=== PATIENT | male | born 1950 | race African-American/Black ===

== ENCOUNTER 2017-07-21 22:10 | Inpatient (IN) | payer MEDICARE ==
[2017-07-22 00:05] LABS: #Basophils 0.1 thou/uL (0.0-0.2); #Lymphocytes 1.6 thou/uL (1.20-3.40); #Monocytes 1.4 thou/uL (0.11-0.59); #Neutrophils 9.8 thou/uL (1.40-6.50); %Basophils 0.4 % (0.0-1.0); %Eosinophils 0.4 % (0.0-10.0); %Lymphocytes 12.3 % (21.0-51.0); %Monocytes 11.1 % (0.0-10.0); Hematocrit 41.9 % (42.0-52.0); Mean Platelet Volume 8.6 fL (7.4-10.4); Red Blood Cell (RBC) Count 4.38 mill/uL (4.70-6.10); White Blood Cell (WBC) Count 12.9 thou/uL (4.8-10.8)
[2017-07-22 00:22] LABS: ALT (SGPT) 15 U/L (8-55); AST (SGOT) 15 U/L (5-34); Alkaline Phosphatase 106 U/L (40-150); Anion Gap 14 mmol/L (10-20); BUN (Urea Nitrogen) 17 mg/dL (8.4-25.7); Bilirubin, Total 0.3 mg/dL (0.2-1.2); Calc. Creatinine Clearance 0 mL/min (70-130); Calcium 10.4 mg/dL (7.8-10.44); Carbon Dioxide 28 mmol/L (23-31); Chloride 99 mmol/L (98-107); Estimated GFR-MDRD 82; Globulin 4.8 g/dL (2.4-3.5); Protein, Total 8.6 g/dL (5.8-8.1)
[2017-07-22 00:26] LABS: Troponin I Less than 0.010 ng/mL (< 0.028)
[2017-07-22] MEDS ORDERED: Enoxaparin Sodium 80 MG/0.8 ML SYRINGE ONE (01:47)
[2017-07-22 01:56] LABS: Lactic Acid - Sepsis 0.9 mmol/L (0.5-2.2)
[2017-07-22 02:01] LABS: PTT 30.7 SEC (22.9-36.1); Prothrombin Time 12.9 SEC (12.0-14.7)
[2017-07-22] MEDS ORDERED: Ondansetron ODT 4 MG TAB SL PRN (03:05)
[2017-07-22] MEDS ORDERED: Sodium Chloride 0.9% 1,000 ML IV SCH (03:05)
[2017-07-22] MEDS ORDERED: Ondansetron HCl/PF 4 MG/2 ML Vial IVP PRN ×2 (03:05→07:19)
[2017-07-22 03:39] VITALS: BMI 28.3
[2017-07-22] MEDS ORDERED: Eucerin (Mineral Oil/Petrolatum,White) 30 gm Jar TOP PRN (07:19)
[2017-07-22] MEDS ORDERED: Sodium Chloride 0.65% Nasal 44 ML BOT EA NARE PRN (07:19)
[2017-07-22] MEDS ORDERED: Milk Of Magnesia 30 ML UDCUP PO PRN (07:19)
[2017-07-22] MEDS ORDERED: Acetaminophen 325 MG TAB PO PRN (07:19)
[2017-07-22] MEDS ORDERED: Artificial Tear Sol 15 ML BOT EA EYE PRN (07:19)
[2017-07-22] MEDS ORDERED: Loratadine 10 MG TAB PO PRN (07:19)
[2017-07-22] MEDS ORDERED: Chloraseptic Spray 180 ml Bottle PO PRN (07:19)
[2017-07-22] MEDS ORDERED: Zolpidem Tartrate 5 MG TAB PO PRN (07:19)
[2017-07-22] MEDS ORDERED: HYDROcodone/Acetaminophen 5/325 mg Tablet PO PRN (07:19)
[2017-07-22] MEDS ORDERED: Mag-Al 1200 mg/1200 mg/30 ML UDCUP PO PRN (07:19)
[2017-07-22] MEDS ORDERED: Loperamide HCl 2 MG CAP PO PRN (07:19)
[2017-07-22] MEDS ORDERED: Ondansetron ODT 4 MG TAB PO PRN (07:19)
[2017-07-22] MEDS ORDERED: hydrALAZINE 20 MG/ML VIAL SLOW IVP PRN (07:19)
[2017-07-22] MEDS ORDERED: Senokot 8.6 MG TAB PO PRN (07:19)
[2017-07-22] MEDS ORDERED: Sodium Chloride 0.9% 10 ML ONE (08:26)
--- NOTE | 2017-07-22 08:59 | RAD ---
PA AND LATERAL CHEST: Date: 07/22/17 HISTORY: Cough and right-sided chest pain. COMPARISON: 07/10/17. FINDINGS: Cardiac silhouette and pulmonary vasculature are within normal limits. Increased linear opacities are seen at each lung base, probably related to atelectasis. However, developing infiltrate at the right lung base cannot be entirely excluded. Lungs are otherwise clear. There has been no other interval c hange from prior exam. IMPRESSION: Increased linear densities at each lung base, greater on the right, which may be related to atelectas is, but developing infiltrate right lung base cannot be entirely excluded. Follow-up evaluation is hagen ggested. POS: BA
[2017-07-22] MEDS: Enoxaparin Sodium 80 MG/0.8 ML SYRINGE SC SCH ×2 (10:35→20:18)
[2017-07-22] MEDS: Diabetic Tussin 200 MG/10 ML UDCUP PO PRN ×2 (10:35→20:18)
--- NOTE | 2017-07-22 11:31 | ULT ---
BILATERAL LOWER EXTREMITY VENOUS DOPPLER ULTRASOUND: Date: 07/22/17 COMPARISON: None. HISTORY: Pulmonary embolism, assess for deep venous thrombosis. TECHNIQUE: Multiplanar Lindsay scale sonographic imaging of the venous structures of bilateral lower extremities ob tained with color flow and spectral analysis. FINDINGS: Bilateral common femoral veins, greater saphenous veins, profunda femoral veins, femoral veins, popli teal veins, and posterior tibial veins are patent with no evidence for deep venous thrombosis on eith er side. Posterior tibial veins are patent as well. There is normal blood flow, augmentation, and com pression within the deep venous system bilaterally. IMPRESSION: No evidence for deep venous thrombosis of either lower extremity. POS: ANDREW
--- NOTE | 2017-07-22 13:30 | CT ---
PRELIMINARY REPORT/[facility]/EMERGENCY AFTER HOURS PROCEDURE: Addendum created by Manoj Farley MD on 07/22/2017 1:36 AM Central Time ([place] & [place]) THIS REPORT CONT AINS FINDINGS THAT MAY BE CRITICAL TO PATIENT CARE. The findings were verbally communicated via telep arcadio conference with Raya Kirkpatrick at 1:36 AM [employer] on 07/22/2017. The findings were acknowledged and unders tood. Initial Report created on 07/22/2017 1:28 AM Central Time ([place] & [place]) EXAM: CT Angiography Chest With Intravenous Contrast EXAM DATE/TIME: Exam ordered 07/22/2017 12:59 AM CLINICAL HISTORY: 66 years old, male; Pain and signs and symptoms; Cough; Symptoms not specified; Chest pain; Patient H X: Er1. Pt C/O 1 week history of cough productive of yellow sputum. Patient denies copd or asthma his tory. Denies fever/chills, weight loss, n/v/d. Endorses right sided chest pain in midaxillary line li cachorro 2/2 to excessive coughing. Denies hemoptysis and sick contacts TECHNIQUE: Axial computed tomographic angiography images of the chest with intravenous contrast using pulmonary embolism protocol. CONTRAST: 95 mL of ISO 370 administered intravenously. COMPARISON: No relevant prior studies available. FINDINGS: Pulmonary arteries: There are filling defects within the RIGHT lower lobe segmental branches consiste nt with acute pulmonary emboli. Aorta: No acute findings. No thoracic aortic aneurysm. Lungs: There is atelectasis and consolidation within the RIGHT lower lobe for which superimposed pneu monia is possible. Pleural space: Normal. No significant effusion. No pneumothorax. Heart: Normal. No cardiomegaly. No significant pericardial effusion. No evidence of RV dysfunction. Mediastinum: A moderate hiatal hernia is present. Bones/joints: No acute fracture. No dislocation. Soft tissues: Normal. Lymph nodes: Normal. No enlarged lymph nodes. IMPRESSION: 1. There are filling defects within the RIGHT lower lobe segmental branches consistent with acute pul monary emboli. 2. There is atelectasis and consolidation within the RIGHT lower lobe for which superimposed pneumoni a is possible. 3. A moderate hiatal hernia is present. Thank you for allowing us to participate in the care of your patient. Dictated and Authenticated by: Manoj Farley MD 07/22/2017 1:28 AM Central Time ([place] & [place]) FINAL REPORT EMERGENCY AFTER HOURS CT ANGIOGRAM THORAX WITH IV CONTRAST AND 3D RECONSTRUCTIONS: Date: 07/22/17 HISTORY: Productive cough of yellow sputum. Right-sided chest pain. Excessive coughing. COMPARISON: None available. IMPRESSION: 1. Pulmonary emboli in distal segmental and subsegmental right lower lobe pulmonary arteries, as wel l as right upper lobe subsegmental pulmonary arteries. 2. Low density area seen within the right lung base with associated interstitial densities present. While given the presence of right lower lobe pulmonary emboli, a pulmonary infarction could not be en tirely excluded, but findings are probably related to atelectasis and/or infiltrate. Continued follow -up is recommended as pulmonary infarction again cannot be entirely excluded. 3. Atelectasis versus pneumonitis in the lingula. 4. Thoracic aorta is normal in caliber without evidence of an aortic dissection. Vascular calcificat ions are seen in the coronary arteries and the thoracic aorta. 5. Hiatal hernia. 6. Subcentimeter, too small to characterize, hypodense lesions in the right hepatic lobe. Findings are in agreement with the preliminary report by Zay. POS: BA
--- NOTE | 2017-07-22 14:17 | HP ---
PRIMARY CARE PHYSICIAN: [facility] call admission. REASON FOR ADMISSION: Pneumonia and pulmonary embolism. HISTORY OF PRESENT ILLNESS: A 66-year-old male who came to the emergency room for 1 -week history of increasing amount of cough and productive yellowish sputum with subjective fever. H e denies any hemoptysis. He denies any dizziness, palpitations, but he was feeling pleuritic chest p ain on the right side. He was also having increasing shortness of breath for the last couple of days . The patient denies any immobilization. The patient denies any recent travel. He denies any sick exposure. He denies any recent flu-like illness or upper respiratory symptoms. He denies any orthop diego, PND, or leg swelling. He denies any calf tenderness. This patient's condition was gradually getting worse and that is why he decided to go to emergency ro om for evaluation. Last night in the emergency room, patient had CT angio, which showed pulmonary em bolism on the right side. Patient was also suspected for pneumonia. In the emergency room, patient was given Lovenox 1 mg per kg, Levaquin 750 mg, IV fluid, and subseque ntly he was admitted to telemetry floor. ALLERGIES: PENICILLIN. CURRENT HOME MEDICATIONS: At this point, the patient does not know the name of medication and uncert ain whether he is taking any medication at home. The patient is a poor historian and he is not able to provide that detail about medication. REVIEW OF SYSTEMS: Please see my HPI or pertinent positives and negatives. All other review of syst ems reviewed and negative except as mentioned in the HPI: Constitutional: Weight loss or gain, ability to conduct usual activities. Skin: Rash, itching. Eyes: Double vision, pain. ENT/Mouth: Nose bleeding, neck stiffness, pain, tenderness. Cardiovascular: Palpitations, dyspnea on exertion, orthopnea. Respiratory: Shortness of breath, wheezing, cough, hemoptysis, fever or night sweats. Gastrointestinal: Poor appetite, abdominal pain, heartburn, nausea, vomiting, constipation, or diarr hea. Genitourinary: Urgency, frequency, dysuria, nocturia. Musculoskeletal: Pain, swelling. Neurologic/Psychiatric: Anxiety, depression. Allergy/Immunologic: Skin rash, bleeding tendency. PAST MEDICAL HISTORY: History of seizure disorder, acid reflux, hypertension, dyslipidemia, asthma. PAST SURGICAL HISTORY: Reviewed and negative, though patient is not able to provide that detailed hi story about his surgical history, so unable to verify. PAST PSYCHIATRIC HISTORY: Unable to verify, but patient denies any previous psychiatric history. SOCIAL HISTORY: Patient lives at home. No history of tobacco, alcohol, or illicit drug abuse. FAMILY HISTORY: No strong family history of premature coronary artery disease, stroke, or cancer. EMERGENCY ROOM COURSE: Patient is given Lovenox 1 mg per kg and Levaquin 750 mg, IV fluid 2 liter. PHYSICAL EXAMINATION: VITAL SIGNS: On arrival blood pressure 146/92, pulse 116, respiratory rate 20, temperature 98.9, sat uration 93%, weight 82.5 kilograms. GENERAL: Patient is currently alert, awake, no obvious acute distress. HEAD: Normocephalic, atraumatic. EYES: Pupils round, reactive to light. Extraocular muscle intact. ENT: Oropharynx within normal limits. Moist mucous membranes. No oral lesions. No pharyngeal eryt myriam, no exudate. NECK: Supple. No JVD, no thyromegaly, no carotid bruits. LUNGS: Air entry reduced bilaterally, a few right-sided rales noted, a few expiratory wheezing heard . CARDIAC: S1, S2 regular, tachycardia, no murmur, no gallop, no rub. ABDOMEN: Soft, bowel sounds present, nontender, nondistended. No organomegaly, no mass, no suprapub ic tenderness. BACK: Unremarkable, no CVA tenderness. EXTREMITIES: Upper extremity, passive movement of all joints are normal. Lower extremity, no edema. Good peripheral pulsation. No calf tenderness. SKIN: No skin rash. HEMATOLOGICAL: No lymphadenopathy. PSYCHIATRIC: Normal affect. NEUROLOGIC: Nonfocal examination. The patient moves all 4 limbs. SIGNIFICANT LABORATORY DATA: EKG based on my review, sinus tachycardia, nonspecific ST-T changes, LV H. CT angio based on biopsy report right-sided pulmonary embolism and right-sided infiltration. Roxann st x-ray based on my review showing increased density at each lung base more on the right side, devel oping infiltrate in right lung base. CBC: WBC 12.9, hemoglobin 13.6, MCV 95.6, platelet 200. INR 1 .0. BMP: Sodium 137, potassium 4.1, chloride 99, carbon dioxide 28, BUN 17, creatinine 1.09, anion gap 14, lactic acid 0.9, glucose 117, calcium 10.4. LFT: AST 15, ALT 15, alkaline phosphatase 106, albumin 3.8, CK 137, CK-MB 1.2, troponin I less than 0.010. ASSESSMENT AND PLAN: 1. Acute right-sided pulmonary embolism, etiology uncertain. We did ultrasound of the lower extremi ty that is negative for any deep venous thrombosis. We will check stool for guaiac x3 to rule out an y occult bleeding and meanwhile, we will treat with Lovenox 1 mg/kg subcutaneous twice daily along wi th warfarin 5 mg p.o. daily. The patient education about warfarin, Eliquis, Xarelto and risk and regi efit of each medication discussed with the patient and the patient opted on warfarin therapy. We steven l monitor H&H, creatinine, platelets every other day. When INR is therapeutic, at that time we will change to warfarin therapy. 2. Right lower lobe community-acquired pneumonia. Patient also has respiratory symptoms that is con cerning for pneumonia. Patient will have levofloxacin 500 mg IV daily. We will check influenza scre en A and B and Streptococcal urinary and Legionella urinary antigen test. We will continue with the DuoNeb every 6 hourly and Mucinex 600 mg twice daily. 3. Sinus tachycardia likely related with underlying pneumonia as well as pulmonary embolism. 4. Macrocytic anemia. We will continue with folic acid 1 mg p.o. daily, vitamin B12 of 1000 mcg p.o . daily. 5. Deep venous thrombosis prophylaxis. Patient is already on full dose of Lovenox and warfarin ther apy. 6. Gastrointestinal prophylaxis, Protonix 40 mg p.o. daily. 7. Hypertension. We will consider adding metoprolol 25 mg p.o. twice daily. CODE STATUS: The patient is FULL CODE. Patient does not have any surrogate decision maker. Disposition and plan based on clinical course. We are expecting patient's stay in the hospital more than 2 midnights. Plan of care extensively discussed with the patient in detail.
[2017-07-22 14:55] LABS: LegU Control Bar Appear? YES (CONTROL BAR); LegionellaU Control Bkground? CLEAR/WHITE (CLR/WHITE); Strp pneuU Control Background? CLEAR/WHITE (CLR/WHITE); Strp pneumo Control Bar Appear YES (CONTROL BAR)
[2017-07-22] MEDS ORDERED: ISOVUE-370 76%-LOCM 1 ML ONE (16:43)
[2017-07-22] MEDS: Warfarin Sodium 5 MG TAB PO SCH (17:57)
[2017-07-22] MEDS: Metoprolol Tartrate 25 MG TAB PO SCH (20:18)
[2017-07-23] MEDS ORDERED: Sodium Chloride 0.9% 10 ML ONE (03:06)
[2017-07-23 05:28] LABS: #Lymphocytes 1.8 thou/uL (1.20-3.40); #Monocytes 1.3 thou/uL (0.11-0.59); #Neutrophils 7.6 thou/uL (1.40-6.50); %Eosinophils 0.5 % (0.0-10.0); %Lymphocytes 16.5 % (21.0-51.0); %Monocytes 11.9 % (0.0-10.0); Hematocrit 37.6 % (42.0-52.0); Mean Platelet Volume 9.1 fL (7.4-10.4); Red Blood Cell (RBC) Count 3.95 mill/uL (4.70-6.10); White Blood Cell (WBC) Count 10.7 thou/uL (4.8-10.8)
[2017-07-23 05:45] LABS: Prothrombin Time 14.2 SEC (12.0-14.7)
[2017-07-23 06:00] LABS: ALT (SGPT) 14 U/L (8-55); AST (SGOT) 13 U/L (5-34); Alkaline Phosphatase 93 U/L (40-150); Anion Gap 10 mmol/L (10-20); BUN (Urea Nitrogen) 11 mg/dL (8.4-25.7); Bilirubin, Total 0.4 mg/dL (0.2-1.2); Calc. Creatinine Clearance 86 mL/min (70-130); Calcium 10.2 mg/dL (7.8-10.44); Carbon Dioxide 24 mmol/L (23-31); Chloride 103 mmol/L (98-107); Estimated GFR-MDRD Greater than 90; Globulin 4.3 g/dL (2.4-3.5); Protein, Total 7.7 g/dL (5.8-8.1)
[2017-07-23] MEDS: Enoxaparin Sodium 80 MG/0.8 ML SYRINGE SC SCH ×2 (09:45→20:33)
[2017-07-23] MEDS: Cyanocobalamin (Vitamin B-12) 1,000 MCG TAB PO SCH (09:45)
[2017-07-23] MEDS: Metoprolol Tartrate 25 MG TAB PO SCH ×2 (09:45→20:32)
[2017-07-23] MEDS: Folic Acid 1 MG TAB PO SCH (09:45)
--- NOTE | 2017-07-23 11:48 | PDOC.PN ---
- Subjective Encounter Start Date: 07/23/17 Encounter Start Time: 07:20 -: old records requested/rev Patient seen and examined. No new complaints. No overnight events - Objective Resuscitation Status: Resuscitation Status FULL:Full Resuscitation MAR Reviewed: Yes Vital Signs & Weight: Vital Signs (12 hours) Temp Pulse Resp BP BP Pulse Ox 07/23/17 08:00 98.5 F 110 H 20 93 L 07/23/17 07:52 98.5 F 110 H 20 138/90 93 L 07/23/17 03:26 98.9 F 110 H 20 130/63 92 L 07/23/17 02:35 119 H 16 92 L 07/23/17 00:00 20 Weight Weight 178 lb I&O: 07/22/17 07/23/17 07/24/17 06:59 06:59 06:59 Intake Total 650 2340 Output Total 200 2025 Balance 450 315 Result Diagrams: 07/23/17 04:44 07/23/17 04:44 EKG Reviewed by me: Yes (nsr) Phys Exam - Physical Examination Constitutional: NAD HEENT: PERRLA, moist MMs, sclera anicteric Neck: no JVD, supple Respiratory: no wheezing, no rhonchi right lower lobe few rales Cardiovascular: RRR, no significant murmur, no rub Gastrointestinal: soft, non-tender, no distention, positive bowel sounds Musculoskeletal: no edema, pulses present Neurological: non-focal, normal sensation Lymphatic: no nodes Psychiatric: normal affect Skin: no rash, normal turgor Dx/Plan (1) Acute pulmonary embolism Code(s): I26.99 - OTHER PULMONARY EMBOLISM WITHOUT ACUTE COR PULMONALE Status : Acute (2) Community acquired bacterial pneumonia Code(s): J15.9 - UNSPECIFIED BACTERIAL PNEUMONIA Status: Acute (3) Dyslipidemia Code(s): E78.5 - HYPERLIPIDEMIA, UNSPECIFIED Status: Chronic (4) Hiatal hernia Code(s): K44.9 - DIAPHRAGMATIC HERNIA WITHOUT OBSTRUCTION OR GANGRENE Status: Chronic (5) Seizure disorder Code(s): G40.909 - EPILEPSY, UNSP, NOT INTRACTABLE, WITHOUT STATUS EPILEPTICUS Status: Chronic - Plan cont current plan of care, continue antibiotics, PT/OT * continue lovenox and warfarin until INR therapeutic. * continue levaquin * start PT * DC Tele * transfer to medical * medication reviewed as below * symptomatic treatment Review of Systems - Review of Systems ENT: negative: Ear Pain, Ear Discharge, Nose Pain, Nose Discharge, Nose Congestion, Mouth Pain, Mouth Swelling, Throat Pain, Throat Swelling, Other Respiratory: negative: Cough, Dry, Shortness of Breath, Hemoptysis, SOB with Excertion, Pleuritic Pain, Sputum, Wheezing Cardiovascular: negative: Chest Pain, Palpitations, Orthopnea, Paroxysmal Noc. Dyspnea, Edema, Light Headedness, Other Gastrointestinal: negative: Nausea, Vomiting, Abdominal Pain, Diarrhea, Constipation, Melena, Hematochezia, Other Genitourinary: negative: Dysuria, Frequency, Incontinence, Hematuria, Retention , Other Musculoskeletal: negative: Neck Pain, Shoulder Pain, Arm Pain, Back Pain, Hand Pain, Leg Pain, Foot Pain, Other Skin: negative: Rash, Lesions, Atul, Bruising, Other - Medications/Allergies Allergies/Adverse Reactions: Allergies Allergy/AdvReac Type Severity Reaction Status Date / Time Penicillins Allergy Verified 07/22/17 03:32 Medications: Current Medications Acetaminophen (Tylenol) 650 mg PO Q4H PRN PRN Reason: Headache/Fever or Pain Hydrocodone Bitart/Acetaminophen ([place] 5/325) 1 tab PO Q4H PRN PRN Reason: Moderate Pain (4-6) Al Hydroxide/Mg Hydroxide (Maalox) 30 ml PO Q6H PRN PRN Reason: Heartburn or Indigestion Albuterol/Ipratropium (Duoneb) 3 ml NEB [id number] PRN PRN Reason: SOB &/or Wheezing Last Admin: 07/23/17 02:35 Dose: 3 ml Artificial Tears (Tears Renewed 15ml Bottle) 0 drop EA EYE PRN PRN PRN Reason: Dry Eyes Atorvastatin Calcium (Lipitor) 40 mg PO QPM [facility] Cyanocobalamin (Vitamin B-12) 1,000 mcg PO DAILY [facility] Last Admin: 07/23/17 09:45 Dose: 1,000 mcg Enoxaparin Sodium (Lovenox) 80 mg SC 0900,2100 [facility] Last Admin: 07/23/17 09:45 Dose: 80 mg Folic Acid (Folvite) 1 mg PO DAILY [facility] Last Admin: 07/23/17 09:45 Dose: 1 mg Guaifenesin (Robitussin Sf) 200 mg PO Q4H PRN PRN Reason: Cough Last Admin: 07/22/17 20:18 Dose: 200 mg Hydralazine HCl (Apresoline) 10 mg SLOW IVP Q4H PRN PRN Reason: Systolic BP > 180 Levofloxacin 500 mg/ Device 100 mls @ 100 mls/hr IVPB Q24HR@0200 [facility] Last Admin: 07/23/17 03:14 Dose: 100 mls Loperamide HCl (Imodium) 2 mg PO PRN PRN PRN Reason: Diarrhea/Loose Stools Loratadine (Claritin) 10 mg PO DAILYPRN PRN PRN Reason: Sinus Symptoms Magnesium Hydroxide (Milk Of Magnesium) 30 ml PO DAILYPRN PRN PRN Reason: Constipation Metoprolol Tartrate (Lopressor) 25 mg PO BID [facility] Last Admin: 07/23/17 09:45 Dose: 25 mg Mineral Oil/White Petrolatum (Eucerin Cream) 0 gm TOP BIDPRN PRN PRN Reason: Dry Skin Ondansetron HCl (Zofran Odt) 4 mg PO Q6H PRN PRN Reason: Nausea/Vomiting Ondansetron HCl (Zofran) 4 mg IVP Q6H PRN PRN Reason: Nausea/Vomiting Pantoprazole Sodium (Protonix) 40 mg PO DAILY [facility] Last Admin: 07/23/17 09:45 Dose: 40 mg Phenol (Chloraseptic [place] 180 Ml Bot) 0 ml PO PRN PRN PRN Reason: Sore Throat Phenytoin Sodium (Dilantin Er) 400 mg PO QPM [facility] Senna (Senokot) 2 tab PO HSPRN PRN PRN Reason: Constipation Sodium Chloride ([place] Nasal [place] 0.65%) 0 ml EA NARE QIDPRN PRN PRN Reason: Nasal Congestion Sodium Chloride (Flush - Normal Saline) 10 ml IVF Q12HR [facility] Last Admin: 07/23/17 09:46 Dose: 10 ml Sodium Chloride (Flush - Normal Saline) 10 ml IVF PRN PRN PRN Reason: Saline Flush Warfarin Sodium (Coumadin) 5 mg PO 1700 [facility] Last Admin: 07/22/17 17:57 Dose: 5 mg Zolpidem Tartrate (Ambien) 5 mg PO HSPRN PRN PRN Reason: Insomnia
[2017-07-23] MEDS: Warfarin Sodium 5 MG TAB PO SCH (18:04)
[2017-07-23] MEDS: Atorvastatin Calcium 40 MG TAB PO SCH (20:32)
[2017-07-24 05:19] LABS: Hematocrit 36.9 % (42.0-52.0)
[2017-07-24 05:22] LABS: Prothrombin Time 14.1 SEC (12.0-14.7)
[2017-07-24 05:34] LABS: Calc. Creatinine Clearance 86 mL/min (70-130); Estimated GFR-MDRD Greater than 90
[2017-07-24] MEDS: Folic Acid 1 MG TAB PO SCH (08:44)
[2017-07-24] MEDS: Cyanocobalamin (Vitamin B-12) 1,000 MCG TAB PO SCH (08:45)
[2017-07-24] MEDS: Metoprolol Tartrate 25 MG TAB PO SCH ×2 (08:45→20:34)
[2017-07-24] MEDS: Diabetic Tussin 200 MG/10 ML UDCUP PO PRN ×3 (08:52→23:39)
[2017-07-24] MEDS: Enoxaparin Sodium 80 MG/0.8 ML SYRINGE SC SCH ×2 (11:20→20:31)
--- NOTE | 2017-07-24 12:25 | PDOC.PN ---
- Subjective Encounter Start Date: 07/24/17 Encounter Start Time: 10:20 Patient seen and examined. No new complaints. No overnight events - Objective Resuscitation Status: Resuscitation Status FULL:Full Resuscitation MAR Reviewed: Yes Vital Signs & Weight: Vital Signs (12 hours) Temp Pulse Resp BP Pulse Ox 07/24/17 11:29 99.3 F 89 20 120/84 96 07/24/17 08:30 99.4 F 106 H 20 07/24/17 07:52 99.4 F 106 H 20 130/84 93 L 07/24/17 04:00 99.2 F 109 H 20 132/78 95 07/24/17 02:45 92 L Weight Weight 178 lb I&O: 07/23/17 07/24/17 07/25/17 06:59 06:59 06:59 Intake Total 2340 1700 Output Total 2025 550 Balance 315 1150 Result Diagrams: 07/24/17 05:04 07/24/17 05:04 Phys Exam - Physical Examination Constitutional: NAD HEENT: PERRLA, moist MMs, sclera anicteric Neck: no JVD, supple Respiratory: no wheezing, no rales, no rhonchi Cardiovascular: RRR, no significant murmur, no rub Gastrointestinal: soft, non-tender, no distention, positive bowel sounds Musculoskeletal: no edema, pulses present Neurological: non-focal, normal sensation Psychiatric: normal affect, A&O x 3 Skin: no rash, normal turgor Dx/Plan (1) Acute pulmonary embolism Code(s): I26.99 - OTHER PULMONARY EMBOLISM WITHOUT ACUTE COR PULMONALE Status : Acute (2) Community acquired bacterial pneumonia Code(s): J15.9 - UNSPECIFIED BACTERIAL PNEUMONIA Status: Acute (3) Dyslipidemia Code(s): E78.5 - HYPERLIPIDEMIA, UNSPECIFIED Status: Chronic (4) Hiatal hernia Code(s): K44.9 - DIAPHRAGMATIC HERNIA WITHOUT OBSTRUCTION OR GANGRENE Status: Chronic (5) Seizure disorder Code(s): G40.909 - EPILEPSY, UNSP, NOT INTRACTABLE, WITHOUT STATUS EPILEPTICUS Status: Chronic - Plan cont current plan of care, continue antibiotics * from tomorrow will change to elliquis * continue levaquin * medication reviewed as below * symptomatic treatment * overall doing well. Review of Systems - Review of Systems ENT: negative: Ear Pain, Ear Discharge, Nose Pain, Nose Discharge, Nose Congestion, Mouth Pain, Mouth Swelling, Throat Pain, Throat Swelling, Other Respiratory: negative: Cough, Dry, Shortness of Breath, Hemoptysis, SOB with Excertion, Pleuritic Pain, Sputum, Wheezing Cardiovascular: negative: Chest Pain, Palpitations, Orthopnea, Paroxysmal Noc. Dyspnea, Edema, Light Headedness, Other Gastrointestinal: negative: Nausea, Vomiting, Abdominal Pain, Diarrhea, Constipation, Melena, Hematochezia, Other Genitourinary: negative: Dysuria, Frequency, Incontinence, Hematuria, Retention , Other Musculoskeletal: negative: Neck Pain, Shoulder Pain, Arm Pain, Back Pain, Hand Pain, Leg Pain, Foot Pain, Other Skin: negative: Rash, Lesions, Atul, Bruising, Other - Medications/Allergies Allergies/Adverse Reactions: Allergies Allergy/AdvReac Type Severity Reaction Status Date / Time Penicillins Allergy Verified 07/22/17 03:32 Medications: Current Medications Acetaminophen (Tylenol) 650 mg PO Q4H PRN PRN Reason: Headache/Fever or Pain Hydrocodone Bitart/Acetaminophen ([place] 5/325) 1 tab PO Q4H PRN PRN Reason: Moderate Pain (4-6) Al Hydroxide/Mg Hydroxide (Maalox) 30 ml PO Q6H PRN PRN Reason: Heartburn or Indigestion Albuterol/Ipratropium (Duoneb) 3 ml NEB [id number] PRN PRN Reason: SOB &/or Wheezing Last Admin: 07/24/17 02:45 Dose: 3 ml Artificial Tears (Tears Renewed 15ml Bottle) 0 drop EA EYE PRN PRN PRN Reason: Dry Eyes Atorvastatin Calcium (Lipitor) 40 mg PO QPM [facility] Last Admin: 07/23/17 20:32 Dose: 40 mg Cyanocobalamin (Vitamin B-12) 1,000 mcg PO DAILY [facility] Last Admin: 07/24/17 08:45 Dose: 1,000 mcg Enoxaparin Sodium (Lovenox) 80 mg SC 0900,2100 [facility] Last Admin: 07/24/17 11:20 Dose: 80 mg Folic Acid (Folvite) 1 mg PO DAILY [facility] Last Admin: 07/24/17 08:44 Dose: 1 mg Guaifenesin (Robitussin Sf) 200 mg PO Q4H PRN PRN Reason: Cough Last Admin: 07/24/17 08:52 Dose: 200 mg Hydralazine HCl (Apresoline) 10 mg SLOW IVP Q4H PRN PRN Reason: Systolic BP > 180 Levofloxacin 500 mg/ Device 100 mls @ 100 mls/hr IVPB Q24HR@0200 [facility] Last Admin: 07/24/17 01:57 Dose: 100 mls Loperamide HCl (Imodium) 2 mg PO PRN PRN PRN Reason: Diarrhea/Loose Stools Loratadine (Claritin) 10 mg PO DAILYPRN PRN PRN Reason: Sinus Symptoms Magnesium Hydroxide (Milk Of Magnesium) 30 ml PO DAILYPRN PRN PRN Reason: Constipation Metoprolol Tartrate (Lopressor) 25 mg PO BID [facility] Last Admin: 07/24/17 08:45 Dose: 25 mg Mineral Oil/White Petrolatum (Eucerin Cream) 0 gm TOP BIDPRN PRN PRN Reason: Dry Skin Ondansetron HCl (Zofran Odt) 4 mg PO Q6H PRN PRN Reason: Nausea/Vomiting Ondansetron HCl (Zofran) 4 mg IVP Q6H PRN PRN Reason: Nausea/Vomiting Pantoprazole Sodium (Protonix) 40 mg PO DAILY [facility] Last Admin: 07/24/17 08:45 Dose: 40 mg Phenol (Chloraseptic [place] 180 Ml Bot) 0 ml PO PRN PRN PRN Reason: Sore Throat Phenytoin Sodium (Dilantin Er) 400 mg PO QPM [facility] Last Admin: 07/23/17 20:32 Dose: 400 mg Senna (Senokot) 2 tab PO HSPRN PRN PRN Reason: Constipation Sodium Chloride ([place] Nasal [place] 0.65%) 0 ml EA NARE QIDPRN PRN PRN Reason: Nasal Congestion Sodium Chloride (Flush - Normal Saline) 10 ml IVF Q12HR [facility] Last Admin: 07/24/17 08:45 Dose: 10 ml Sodium Chloride (Flush - Normal Saline) 10 ml IVF PRN PRN PRN Reason: Saline Flush Warfarin Sodium (Coumadin) 5 mg PO 1700 [facility] Last Admin: 07/23/17 18:04 Dose: 5 mg Zolpidem Tartrate (Ambien) 5 mg PO HSPRN PRN PRN Reason: Insomnia
[2017-07-24] MEDS: Warfarin Sodium 5 MG TAB PO SCH (16:41)
[2017-07-24] MEDS: Atorvastatin Calcium 40 MG TAB PO SCH (20:34)
[2017-07-24] MEDS ORDERED: Apixaban 5 MG TAB PO SCH (21:00)
[2017-07-25 06:08] LABS: Prothrombin Time 14.1 SEC (12.0-14.7)
[2017-07-25] MEDS: Diabetic Tussin 200 MG/10 ML UDCUP PO PRN ×3 (06:36→18:34)
[2017-07-25] MEDS: Cyanocobalamin (Vitamin B-12) 1,000 MCG TAB PO SCH (09:08)
[2017-07-25] MEDS: Folic Acid 1 MG TAB PO SCH (09:08)
[2017-07-25] MEDS: Apixaban 5 MG TAB PO SCH ×2 (09:09→21:38)
[2017-07-25] MEDS: Metoprolol Tartrate 25 MG TAB PO SCH ×2 (09:10→21:38)
--- NOTE | 2017-07-25 12:41 | PDOC.PN ---
- Subjective Encounter Start Date: 07/25/17 Encounter Start Time: 09:10 Patient seen and examined. No new complaints. No overnight events - Objective Resuscitation Status: Resuscitation Status FULL:Full Resuscitation MAR Reviewed: Yes Vital Signs & Weight: Vital Signs (12 hours) Temp Pulse Resp BP Pulse Ox 07/25/17 08:30 98.3 F 113 H 20 07/25/17 07:05 98.3 F 113 H 20 142/84 H 95 07/25/17 04:00 99.2 F 96 20 125/84 96 Weight Weight 178 lb I&O: 07/24/17 07/25/17 07/26/17 06:59 06:59 06:59 Intake Total 1700 1775 Output Total 550 425 Balance 1150 1350 Result Diagrams: 07/24/17 05:04 07/24/17 05:04 Phys Exam - Physical Examination Constitutional: NAD HEENT: PERRLA, moist MMs, sclera anicteric Neck: no JVD, supple Respiratory: no wheezing, no rales, no rhonchi Cardiovascular: RRR, no significant murmur, no rub Gastrointestinal: soft, non-tender, no distention, positive bowel sounds Musculoskeletal: no edema, pulses present Neurological: non-focal, normal sensation, moves all 4 limbs Psychiatric: normal affect, A&O x 3 Skin: no rash, normal turgor Dx/Plan (1) Acute pulmonary embolism Code(s): I26.99 - OTHER PULMONARY EMBOLISM WITHOUT ACUTE COR PULMONALE Status : Acute (2) Community acquired bacterial pneumonia Code(s): J15.9 - UNSPECIFIED BACTERIAL PNEUMONIA Status: Acute (3) Dyslipidemia Code(s): E78.5 - HYPERLIPIDEMIA, UNSPECIFIED Status: Chronic (4) Hiatal hernia Code(s): K44.9 - DIAPHRAGMATIC HERNIA WITHOUT OBSTRUCTION OR GANGRENE Status: Chronic (5) Seizure disorder Code(s): G40.909 - EPILEPSY, UNSP, NOT INTRACTABLE, WITHOUT STATUS EPILEPTICUS Status: Chronic - Plan cont current plan of care, continue antibiotics * medication reviewed as below * symptomatic treatment * continue elliquis * will discharge tomorrow on po levaquin * doing well and stable. Review of Systems - Review of Systems ENT: negative: Ear Pain, Ear Discharge, Nose Pain, Nose Discharge, Nose Congestion, Mouth Pain, Mouth Swelling, Throat Pain, Throat Swelling, Other Respiratory: negative: Cough, Dry, Shortness of Breath, Hemoptysis, SOB with Excertion, Pleuritic Pain, Sputum, Wheezing Cardiovascular: negative: Chest Pain, Palpitations, Orthopnea, Paroxysmal Noc. Dyspnea, Edema, Light Headedness, Other Gastrointestinal: negative: Nausea, Vomiting, Abdominal Pain, Diarrhea, Constipation, Melena, Hematochezia, Other Genitourinary: negative: Dysuria, Frequency, Incontinence, Hematuria, Retention , Other Musculoskeletal: negative: Neck Pain, Shoulder Pain, Arm Pain, Back Pain, Hand Pain, Leg Pain, Foot Pain, Other - Medications/Allergies Allergies/Adverse Reactions: Allergies Allergy/AdvReac Type Severity Reaction Status Date / Time Penicillins Allergy Verified 07/22/17 03:32 Medications: Current Medications Acetaminophen (Tylenol) 650 mg PO Q4H PRN PRN Reason: Headache/Fever or Pain Hydrocodone Bitart/Acetaminophen ([place] 5/325) 1 tab PO Q4H PRN PRN Reason: Moderate Pain (4-6) Al Hydroxide/Mg Hydroxide (Maalox) 30 ml PO Q6H PRN PRN Reason: Heartburn or Indigestion Albuterol/Ipratropium (Duoneb) 3 ml NEB [id number] PRN PRN Reason: SOB &/or Wheezing Last Admin: 07/24/17 20:55 Dose: 3 ml Apixaban (Eliquis) 10 mg PO BID [facility] Last Admin: 07/25/17 09:09 Dose: 10 mg Artificial Tears (Tears Renewed 15ml Bottle) 0 drop EA EYE PRN PRN PRN Reason: Dry Eyes Atorvastatin Calcium (Lipitor) 40 mg PO QPM [facility] Last Admin: 07/24/17 20:34 Dose: 40 mg Cyanocobalamin (Vitamin B-12) 1,000 mcg PO DAILY [facility] Last Admin: 07/25/17 09:08 Dose: 1,000 mcg Folic Acid (Folvite) 1 mg PO DAILY [facility] Last Admin: 07/25/17 09:08 Dose: 1 mg Guaifenesin (Robitussin Sf) 200 mg PO Q4H PRN PRN Reason: Cough Last Admin: 07/25/17 09:18 Dose: 200 mg Hydralazine HCl (Apresoline) 10 mg SLOW IVP Q4H PRN PRN Reason: Systolic BP > 180 Levofloxacin 500 mg/ Device 100 mls @ 100 mls/hr IVPB Q24HR@0200 [facility] Last Admin: 07/25/17 01:42 Dose: 100 mls Loperamide HCl (Imodium) 2 mg PO PRN PRN PRN Reason: Diarrhea/Loose Stools Loratadine (Claritin) 10 mg PO DAILYPRN PRN PRN Reason: Sinus Symptoms Magnesium Hydroxide (Milk Of Magnesium) 30 ml PO DAILYPRN PRN PRN Reason: Constipation Metoprolol Tartrate (Lopressor) 25 mg PO BID [facility] Last Admin: 07/25/17 09:10 Dose: 25 mg Mineral Oil/White Petrolatum (Eucerin Cream) 0 gm TOP BIDPRN PRN PRN Reason: Dry Skin Ondansetron HCl (Zofran Odt) 4 mg PO Q6H PRN PRN Reason: Nausea/Vomiting Ondansetron HCl (Zofran) 4 mg IVP Q6H PRN PRN Reason: Nausea/Vomiting Pantoprazole Sodium (Protonix) 40 mg PO DAILY [facility] Last Admin: 07/25/17 09:08 Dose: 40 mg Phenol (Chloraseptic [place] 180 Ml Bot) 0 ml PO PRN PRN PRN Reason: Sore Throat Phenytoin Sodium (Dilantin Er) 400 mg PO QPM [facility] Last Admin: 07/24/17 20:32 Dose: 400 mg Senna (Senokot) 2 tab PO HSPRN PRN PRN Reason: Constipation Sodium Chloride ([place] Nasal [place] 0.65%) 0 ml EA NARE QIDPRN PRN PRN Reason: Nasal Congestion Sodium Chloride (Flush - Normal Saline) 10 ml IVF Q12HR [facility] Last Admin: 07/25/17 09:09 Dose: 10 ml Sodium Chloride (Flush - Normal Saline) 10 ml IVF PRN PRN PRN Reason: Saline Flush Zolpidem Tartrate (Ambien) 5 mg PO HSPRN PRN PRN Reason: Insomnia
[2017-07-25] MEDS: Atorvastatin Calcium 40 MG TAB PO SCH (21:38)
[2017-07-26] MEDS: Diabetic Tussin 200 MG/10 ML UDCUP PO PRN ×2 (02:10→06:37)
[2017-07-26 05:15] LABS: Hematocrit 36.8 % (42.0-52.0)
[2017-07-26 05:21] LABS: Prothrombin Time 15.5 SEC (12.0-14.7)
[2017-07-26 05:44] LABS: Calc. Creatinine Clearance 90 mL/min (70-130); Estimated GFR-MDRD Greater than 90
[2017-07-26] MEDS: Folic Acid 1 MG TAB PO SCH (08:51)
[2017-07-26] MEDS: Metoprolol Tartrate 25 MG TAB PO SCH (08:51)
[2017-07-26] MEDS: Apixaban 5 MG TAB PO SCH (08:51)
[2017-07-26] MEDS: Cyanocobalamin (Vitamin B-12) 1,000 MCG TAB PO SCH (08:51)
[2017-07-26 09:08] VITALS: BP 128/90; TEMP 97.9
--- NOTE | 2017-07-26 15:06 | DIS ---
DATE OF ADMISSION: 07/22/2017 DATE OF DISCHARGE: 07/26/2017 PRIMARY CARE PHYSICIAN: [facility] call admission. DISCHARGE DISPOSITION: Home. PRIMARY DISCHARGE DIAGNOSES: 1. Acute pulmonary embolism. 2. Community-acquired bacterial pneumonia. SECONDARY DISCHARGE DIAGNOSES: 1. Seizure disorder. 2. Hiatal hernia. 3. Dyslipidemia. PRIMARY PROCEDURE/OPERATION: None. RADIOLOGICAL INVESTIGATION: CT angio was showing right lower lobe pulmonary embolism as well as a ri ght lower lobe infiltration. Ultrasound was negative for any DVT. Chest x-ray was unremarkable. SIGNIFICANT LABORATORY DATA: WBC 10.7, hemoglobin 11.8, platelets 187. INR 1.2, D-dimer 1.41. Sodi um 133, potassium 4.2, BUN 11, creatinine 0.96. LFTs normal. Cardiac enzymes negative. Dilantin le paxton 3.8. Urine legionella and Streptococcal pneumonia antigen negative. Blood culture negative, inf luenza negative. Stool for occult blood negative. DISCHARGE MEDICATIONS: Eliquis 5 mg p.o. b.i.d., Lipitor 40 mg p.o. at bedtime, vitamin B12 1000 mcg p.o. daily, Pepcid 40 mg p.o. at bedtime, folic acid 1 mg p.o. daily, Levaquin 500 mg p.o. daily for 5 days, Metoprolol 25 mg p.o. b.i.d., Dilantin 400 mg p.o. at bedtime. CONTRAINDICATIONS: None. CODE STATUS: FULL CODE. INPATIENT CONSULTANTS: None. ALLERGIES: PENICILLIN. DISCHARGE PLAN: Post hospital, the patient is advised to follow up with primary care physician in 1 week. HOSPITAL COURSE: A 66-year-old male with the above mentioned medical problem who was admitted by ar. Please see my HPI for further details. The patient was admitted to the telemetry floor. He was maldonado ving cough productive of yellowish sputum and subjective fever. He was also having right-sided pain. In the emergency room, the patient had CT angio, which showed right-sided pulmonary embolism as wel l as pneumonia. The patient was treated with Lovenox 1 mg/kg along with warfarin therapy initially a nd IV antibiotic therapy was given with levofloxacin. Patient was observed on telemetry floor for 1 day. We did an ultrasound of the lower extremity, which was negative for any DVT. Subsequently, upo n stabilization, the patient was transferred to medical floor. Initially, the patient was agreed wit h Lovenox and warfarin therapy, but when we discussed about newer anticoagulant therapy and their adv antage and disadvantage, at that time, the patient decided to go with newer anticoagulant therapy and we choose Eliquis therapy. At that point, we discontinued Lovenox and warfarin and started on Eliqu is therapy. The patient was doing very well with this therapy. He was tolerating this medication. He understood risk and benefit of Eliquis therapy. He will follow with primary care physician for fu rther prescription. The patient's pneumonia is improved with Levaquin therapy. On discharge, we prescribed another 5 day s of Levaquin therapy. He had macrocytosis, which was suspected from Dilantin therapy and that is wh y we started folic acid and vitamin B12 therapy. The rest of medication was continued as per previou s. For his new high blood pressure, we started metoprolol therapy. The patient is seen and examined at bedside today. He is ambulatory. He is on room air. He is tole rating p.o. well. He is completely asymptomatic and he wants to go home today. PHYSICAL EXAMINAITON: VITAL SIGNS: Today, his temperature 97.9, pulse 96, respiratory rate 18, saturation 94%, blood press ure 128/90, weight 178 pounds. GENERAL: The patient is currently alert, awake, in no acute distress. HEAD: Normocephalic, atraumatic. LUNGS: Clear to auscultation without any rhonchi or rales. CARDIAC: S1, S2 regular, without any murmurs. ABDOMEN: Soft and benign. EXTREMITIES: No edema. NEUROLOGIC: Nonfocal examination. The patient is medically stable for discharge today.
== END 2017-07-26 14:08 | disposition home or self-care (01) | DRG 175 ==
LOC: ERS 22:10 → 2NO 07-22 02:44 → T4-A 07-23 12:18
PROVIDERS: ADMIT Internal Medicine; ATTEND Internal Medicine
DX: I26.99 Other pulmonary embolism without acute cor pulmonale (principal); J15.9 Unspecified bacterial pneumonia; I10 Essential (primary) hypertension; Z88.0 Allergy status to penicillin; R00.0 Tachycardia, unspecified; D53.9 Nutritional anemia, unspecified; G40.909 Epilepsy, unspecified, not intractable, without status epilepticus; K44.9 Diaphragmatic hernia without obstruction or gangrene; E78.5 Hyperlipidemia, unspecified
CPT/HCPCS: 36415; 71020; 71275; 80053; 80185; 82550; 82553; 82565; 83605; 84484; 85014; 85018; 85025; 85049; 85379; 85610; 85730; 87040; 87899; 93005; 93970; 94640; 96361; 96365; 96372; A4216; G8978-GP-CI; G8979-GP-CI; G8980-GP-CI; G8987-GO-CH; G8988-GO-CH; J1650; J1956; J7620

== ENCOUNTER 2018-05-14 23:31 | Emergency (ER) | payer MEDICARE, MEDICAID ==
[~2018-05-14 23:31] MED LIST: Atropine Sulfate 1 mg/10 ml Syringe ONE; Calcium Chloride 1 GM/10 ML Abboject SYRINGE ONE; EPINEPHrine 1 MG/10 ML Abboject SYRINGE ONE; Sodium Bicarb 50 MEQ/50 ML Abboject 8.4% SYRINGE ONE
== END 2018-05-14 23:45 | disposition expired ==
LOC: ERS 23:31
DX: I46.9 Cardiac arrest, cause unspecified (principal); K21.9 Gastro-esophageal reflux disease without esophagitis; E78.5 Hyperlipidemia, unspecified; I10 Essential (primary) hypertension; J45.909 Unspecified asthma, uncomplicated
CPT/HCPCS: 36556; 92950; 94760; 96374; 96375; J0171; J0461